=== PATIENT | female | born 1950 | race Caucasian/White ===

== ENCOUNTER 2024-09-29 16:03 | Outpatient (CLI) | payer MEDICARE, BC, SELFPAY ==
--- NOTE | 2024-09-29 14:00 | DI.RAD_ITS ---
Exam(s) XR KNEE LT 3V AP,LAT,JOSÉ EXAM: XR KNEE LT 3V AP,LAT,JOSÉ CLINICAL HISTORY: left knee pain. TECHNIQUE: 2D digital imaging was performed. Three views. COMPARISON: CR XR KNEE 3V RT from 07/10/2024 FINDINGS: BONES: No acute fracture is present. No bony destructive lesion is seen. JOINTS: The knee is normally aligned. No joint effusion is seen. Mild narrowing of the medial femor al tibial joint. Periarticular spurring noted throughout, greatest at patella. Joint space loose iraida dy noted posteriorly. SOFT TISSUE: Normal. IMPRESSION: Moderate degenerative changes. Posterior joint space loose body. DATA REPOSITORY: RADIATION DOSE DELIVERED:
== END 2024-09-29 16:04 | disposition home or self-care (01) ==
LOC: DIORS 16:04
PROVIDERS: PCP Neuromusculoskeletal Medicine & OMM; Referring Provider Neuromusculoskeletal Medicine & OMM; Visit Provider Student in an Organized Health Care Education/Training Program
DX: M17.12 Unilateral primary osteoarthritis, left knee
CPT/HCPCS: 73562; 99203

== ENCOUNTER 2024-10-30 02:51 | Outpatient (CLI) | payer MEDICARE, BC, SELFPAY ==
[2024-10-30 14:54] LABS: HCT 41.6 % (36.0-46.0); HGB 15.1 g/dL (11.2-15.7); MCH 32.1 pg (27.0-33.0); MCHC 36.3 % (32.0-36.0); MCV 89 fL (80-95); MPV 8.9 fL (8.0-11.0); Platelet Count 237 10^3/uL (130-400); RDW 11.7 % (11.7-14.6); RDW-SD 37.9 fL; WBC 5.14 10^3/uL (4.4-10.8)
[2024-10-30 15:22] LABS: BUN 15 mg/dL (7-18); CREATININE 0.8 mg/dL (0.55-1.02); Calcium 9.2 mg/dL (8.5-10.1); Chloride 102 mmol/L (98-107); Estimated GFR 76.31 (mL/min/1.73m2); Glucose 102 mg/dL (74-106); Potassium 3.6 mmol/L (3.5-5.1); Sodium 141 mmol/L (136-145)
== END 2024-10-30 02:52 | disposition home or self-care (01) ==
LOC: LBO 02:52
PROVIDERS: PCP Neuromusculoskeletal Medicine & OMM; Visit Provider Student in an Organized Health Care Education/Training Program
DX: M17.12 Unilateral primary osteoarthritis, left knee (principal); Z01.818 Encounter for other preprocedural examination
CPT/HCPCS: 36415; 80048; 85027; 99024; 73560; 77073

== ENCOUNTER 2024-10-30 15:31 | Outpatient (CLI) | payer MEDICARE, BC, SELFPAY ==
--- NOTE | 2024-10-30 13:30 | DI.RAD_ITS ---
Exam(s) XR KNEE LT 1V XR STANDING ALIGNMENT EXAM: XR STANDING ALIGNMENT and XR knee LT 1 V CLINICAL HISTORY: LEFT KNEE DJD. TECHNIQUE: 2D digital imaging was performed. Five images were obtained. COMPARISON: CR XR KNEE 3V RT from 07/10/2024 CR XR KNEE LT 3V AP,LAT,JOSÉ from 09/29/2024 FINDINGS: BONES: The hips are well maintained. There is again seen a right total knee arthroplasty which appea rs stable. There are degenerative changes seen in the left knee characterized by joint space narrowi ng and osteophytes. The findings are most marked in the lateral femoral tibial joint in the patellof emoral joint. There does appear to be a small joint effusion. There osseous densities seen in the p osterior knee which may represent loose bodies. The ankles are well maintained.There is no significa nt leg length discrepancy. SOFT TISSUE: Normal. IMPRESSION: Moderate osteoarthritis of the left knee. DATA REPOSITORY: RADIATION DOSE DELIVERED:
== END 2024-10-30 15:32 | disposition home or self-care (01) ==
LOC: DIORS 15:35
PROVIDERS: PCP Neuromusculoskeletal Medicine & OMM; Visit Provider Physician Assistant
DX: M17.12 Unilateral primary osteoarthritis, left knee (principal); Z01.818 Encounter for other preprocedural examination
CPT/HCPCS: 73560; 77073

== ENCOUNTER 2024-11-06 08:13 | Day surgery (SDC) | payer MEDICARE, BC, SELFPAY ==
[2024-11-06] VITALS (17 sets, daily range): BP systolic 103–146; BP diastolic 56–76; PULSE 71–97; RESP 12–21; TEMP 36–36.5; O2SAT 96–100; BMI 25.2
--- NOTE | 2024-11-06 07:27 | W.PM.DSUDISC ---
Date of service: 11/06/24 Discharge Plan Disposition Patient Disposition: Home Condition: Good Discharge Details Reason For Visit: L TKR Attending Provider: Leodan Sharp Primary Care Provider: Neeraj Valadez Dows Meds and New Rx's Prescriptions: New celecoxib 200 mg capsule 200 mg PO BID Qty: 60 0RF aspirin 81 mg tablet,delayed release (DR/EC) 81 mg PO BID Qty: 60 0RF acetaminophen 500 mg tablet 1,000 mg PO TID Qty: 90 3RF pantoprazole 40 mg tablet,delayed release (DR/EC) 40 mg PO DAILY Qty: 30 0RF dexamethasone 4 mg tablet 4 mg PO DAILY Qty: 2 0RF gabapentin 300 mg capsule 300 mg PO QHS Qty: 14 0RF oxycodone 5 mg tablet 5 mg PO Q4H MDD 6 tabs PRN (Reason: pain) Qty: 20 0RF Continued hydrochlorothiazide 25 mg tablet 25 mg PO DAILY Discharge Instructions Additional Instructions: Total Knee Discharge Instructions Activity: The most important activity is to walk and to work on gentle motion (both flexion and extension). You should try to take short walks a few times a day. It is important that when resting you work on keeping the knee straight. Avoid putting a pillow behind the knee as this will encourage flexion. Work on range of motion exercises as provided by Physical Therapy. - Start outpatient physical therapy within 2 weeks. - You should wear the MASHA hose on both legs for 2 weeks. You may remove these at night. You may also use any compression sock in place of the MASHA hose. - Utilize [employer] to review exercises, see videos on exercises and obtain basic information pertaining to your surgery and your recovery. Dressing: Remove the López wrap by 2 days after your surgery and put on the MASHA stocking given to you from the hospital. Keep the surgical dressing (underneath the LÓPEZ wrap) in place for at least one week. After the first week it may be removed and replaced with light gauze and tape or nothing. The wound and dressing may get wet after 3 days but avoid soaking the dressing or otherwise it will need to be changed. Many people prefer covering the dressing with cling wrap (saran wrap) to minimize it from getting soaked. If it gets wet, just pat dry. If it starts to peel off then it will need to be changed. Medications: - You should take Tylenol and anti-inflammatory Celebrex as your primary pain control medications. If the Celebrex is too expensive or not covered, please call the office for another alternative (Advil/Ibuprofen or Naproxen/Aleve) - You have been prescribed a stronger pain medication Oxycodone for breakthrough pain, take as needed as prescribed. - You have also been prescribed a stomach acid reduction agent Pantoprozole to help reduce stomach acid and reflux. - You have been prescribed Gabapentin to take at night for restlessness and nerve pain. - You will be taking Aspirin 81mg twice a day for DVT prevention unless instructed otherwise. - You have also been prescribed Decadron to take to control post-operative nausea and pain. You will start this tomorrow. - If you have constipation you should take Colace or Miralax (both [id number]). It takes most people 3-4 days to have a bowel movement. Follow-up: 2 weeks If you have any acute concerns or questions, please do not hesitate to contact the office at [phone]. You may contact Dr. Sharp with any questions after hours through the hospital at [phone] or on his cell phone at [phone]. Referrals: Leodan Sharp MD [ [facility] STAFF PHYSICIAN] - Equipment/Supplies: Walker Activity:: Activity as Tolerated Shower/Bathe:: 72 hours Diet:: As Tolerated Discharge Orders Discharge Orders: Discharge Order (Routine); Ordered 11/06/24 Ordered By: Yvan Llamas DS: Diagnosis Discharge Diagnosis (1) Left knee DJD: Status: Acute
[2024-11-06] MEDS: Acetaminophen 500 MG TAB 1000 MG PO (08:44)
[2024-11-06] MEDS: Celecoxib 200 MG CAP 400 MG PO (08:44)
[2024-11-06] MEDS: Gabapentin 300 MG CAP PO (08:44)
[2024-11-06] MEDS: Lactated Ringers 1,000 ML 80 ML IV (09:17)
--- NOTE | 2024-11-06 09:45 | W.ANESPRE ---
General Info Date of Service Date Performed: 11/06/24 Height: 5 ft 1 in Weight: 60.6 kg Body Mass Index (BMI): 25.2 Surgical Procedure: Operation Date: 11/06/24 11:10 Proposed Procedure Side Surgeon p Knee Total Arthroplasty, Cementless CR Left Leodan Sharp MD Meds Allergies and Home Medications Allergies Allergy/AdvReac Type Severity Reaction Status Date / Time No Known Allergies Allergy Verified 11/06/24 08:30 Home Medication ?Medication ?Instructions ?Recorded hydrochlorothiazide 25 mg tablet 25 mg PO DAILY 09/24/24 acetaminophen 500 mg tablet 1,000 mg (2 x 500 mg) PO TID #90 11/06/24 tabs aspirin 81 mg tablet,delayed 81 mg PO BID #60 tabs 11/06/24 release celecoxib 200 mg capsule 200 mg PO BID #60 caps 11/06/24 dexamethasone 4 mg tablet 4 mg PO DAILY #2 tabs 11/06/24 gabapentin 300 mg capsule 300 mg PO QHS #14 caps 11/06/24 oxycodone 5 mg tablet 5 mg PO Q4H PRN pain #20 tabs 11/06/24 pantoprazole 40 mg tablet,delayed 40 mg PO DAILY #30 tabs 11/06/24 release Current Visit Medications: Current Medications Generic Name Dose Route Start Last Admin Trade Name Freq PRN Reason Stop Dose Admin Acetaminophen 1,000 mg 11/06/24 06:00 11/06/24 08:44 Acetaminophen 500 Mg Tab PO 11/06/24 23:59 1,000 mg PREOP RODNEY Administration Acetaminophen 1,000 mg 11/06/24 07:23 Acetaminophen 500 Mg Tab PO 12/06/24 07:22 TID PRN PRN Analgesia Celecoxib 400 mg 11/06/24 06:00 11/06/24 08:44 Celecoxib 200 Mg Cap PO 11/06/24 23:59 400 mg PREOP RODNEY Administration Gabapentin 300 mg 11/06/24 06:00 11/06/24 08:44 Gabapentin 300 Mg Cap PO 11/06/24 23:59 300 mg PREOP RODNEY Administration Ringer's Solution 1,000 mls @ 80 mls/hr 11/06/24 06:00 11/06/24 09:17 IV 11/06/24 23:59 80 mls/hr INFUSION RODNEY Administration Cefazolin Sodium/Dextrose 2 gm in 50 mls @ 100 mls/hr 12/26/24 06:00 Ancef Duplex IVPB 11/06/24 23:59 PREOP RODNEY Tranexamic Acid/Sodium Chloride 1,000 mg in 100 mls @ 600 mls/hr 11/06/24 06:00 IVPB 11/06/24 23:59 PREOP RODNEY IV Miscellaneous Supplies 1 each 11/06/24 06:00 Iv Access IV 11/06/24 23:59 DIRECTED RODNEY Oxycodone HCl 0 mg 11/06/24 07:23 Oxycodone 5 Mg Tab PO 12/06/24 07:22 Q3H PRN PRN Pain Sodium Chloride 0 ml 11/06/24 06:00 Normal Saline Flush 10 Ml Syr IV 11/06/24 23:59 PRN PRN Sodium Chloride 0 ml 11/06/24 06:00 Normal Saline 10 Ml Vial IJ 11/06/24 23:59 DIRECTED PRN Sterile Water 0 ml 11/06/24 06:00 Water,Injection,Sterile 10 Ml Vial IJ 11/06/24 23:59 DIRECTED PRN PFSH Active Problems Active Problems: Problem Status Onset Code Left knee DJD Acute M17.12 Hypertensive disorder Chronic I10 Hyperlipidemia Acute E78.5 Surgical History Surgical History Hx of hysterectomy History of total right knee replacement (2018) Tobacco Smoking/Tobacco Use Status: Never Alcohol Alcohol Intake: current Alcohol intake frequency: a few times a week Alcohol type: wine Substance Use Substance use: Never Substance use type: does not use Vital Signs and Lab Results Vital Signs Most Recent Vital Signs in EMR: Most Recent Vital Signs Temp Pulse Resp BP Pulse Ox 36.0 C L 71 18 146/76 H 98 11/06/24 08:32 11/06/24 08:32 11/06/24 08:32 11/06/24 08:32 11/06/24 08:32 Lab Results Blood Type / Crossmatch: No Data to Display Complete Blood Count: White Blood Count 5.14 10^3/uL (4.4-10.8) 10/30/24 14:44 Red Blood Count 4.70 10^6/uL (3.93-5.22) 10/30/24 14:44 Hemoglobin 15.1 g/dL (11.2-15.7) 10/30/24 14:44 Hematocrit 41.6 % (36.0-46.0) 10/30/24 14:44 Platelet Count 237 10^3/uL (130-400) 10/30/24 14:44 Complete Metabolic Panel: Sodium 141 mmol/L (136-145) 10/30/24 14:44 Potassium 3.6 mmol/L (3.5-5.1) 10/30/24 14:44 Chloride 102 mmol/L (98-107) 10/30/24 14:44 Carbon Dioxide 30.0 mmol/L (21.0-32.0) 10/30/24 14:44 BUN 15 mg/dL (7-18) 10/30/24 14:44 Creatinine 0.8 mg/dL (0.55-1.02) 10/30/24 14:44 Est GFR (CKD-EPI 2020) 76.31 (mL/min/1.73m2) 10/30/24 14:44 Calcium 9.2 mg/dL (8.5-10.1) 10/30/24 14:44 Glucose 102 mg/dL (74-106) 10/30/24 14:44 Liver Function Panel: No Data to Display Coagulation Panel: No Data to Display Cardiac Panel: No Data to Display Arterial Blood Gas: No Data to Display Venous Blood Gas: No Data to Display Pancreas Panel: No Data to Display Thyroid Panel: No Data to Display Infectious Disease: No Data to Display Blood Cultures: No Data to Display Toxicology Panel: No Data to Display Anesthesia Assessment and Plan Anesthesia History Personal History: No History of Anesthesia Complications Family History: No Family History of Anesthesia Complications Exercise Tolerance Exercise Tolerance: Metabolic Equivalents>4 Pertinent Negatives Pertinent Negatives: No Symptoms of GERD Cardiac & Pulmonary Exam Cardiac Exam: Normal S1/S2 Heart Sounds Pulmonary Exam: Clear Bilateral Breath Sounds Implantable Cardiac Device Does patient have a Pacemaker or an ICD?: No Airway Exam Known Difficult Airway: No Mallampati Class: 2 Mouth Opening: Narrow (< 3cm) Thyromental Distance: Greater than 3 cm Neck Range of Motion: Full ROM Neck Circumference: Normal Teeth Condition: Normal Dentition ASA Classification ASA Score: ASA 2 Emergency Case?: No NPO Status NPO Status: NPO Clears >2 hours, Solids >8 hours Anesthesia Plan Resuscitation Status: Full Code Anesthesia Technique: General Anesthesia Airway Planned: Endotracheal Tube Pain Management: Surgeon and patient request nerve block Monitors Used: Standard Monitors Preoperative Comments:: Patient does not want a spinal today. Does not feel like theyve worked for her in the past
--- NOTE | 2024-11-06 10:04 | W.ANESNERVE ---
Nerve Block Single Injection Procedure Date and Time Date Performed: 11/06/24 Procedure Start: 09:55 Location Where Procedure Performed Procedure Location: Day Surgery Unit Reason Performed: Postoperative Analgesia Requesting Provider: Leodan Sharp Timeout Performed Timeout Performed: Yes Monitoring Used ECG, Blood Pressure and SpO2 Sterility Sterility: Hand Hygiene, Surgical Cap, Surgical Mask, Sterile Gloves and Chlorhexidine Sedation Given During Procedure Sedation Given (Indicate Dose Given): Precedex IV Dose:: 8 mcg Patient Mental Status Patient Mental Status: Sedate with meaningful communication Nerve Block 1st Nerve Block: Laterality: Left Block Type: Adductor Canal Ultrasound Image Saved?: Yes Needle / Catheter Used: 100mm SonoPlex II Local Anesthetic Bolus (Indicate Dose Given): Lidocaine used for local infiltration of skin, Injected in 3-5ml increments after negative blood aspiration and Bupivacaine 0.25% Dose:: 15 ml Additives (Indicate Dose Given): Normal Saline Ultrasound: Sterile probe cover and gel used Nerve Stimulator: Supplement to Ultrasound use and No twitch or parasthesia noted < 0.5 mA Paresthesia: None Procedure Tolerated: No Complications and Patient tolerated well Procedure Outcome: Successful Performed By: Kee Hughes
[2024-11-06] MEDS: ceFAZolin 2 GM/50 ML BAG IVPB (11:03)
[2024-11-06] MEDS: TRANEXAMIC ACID/SOD. CHL. 1,000 MG/100 ML BAG 600 MG IVPB (11:12)
--- NOTE | 2024-11-06 12:29 | ROE_ITS ---
Operative Note Operative Note PRE-OP DIAGNOSIS: Left Knee Osteoarthritis POST-OP DIAGNOSIS: same PROCEDURE: Left Total Knee Replacement SURGEON: Leodan Sharp [employer] PROFESSOR: Priyanka Llamas ANESTHESIA TYPE: General LMA/ETT Refer to Anesthesia Record ESTIMATED BLOOD LOSS: 150 PATHOLOGY: none sent TOURNIQUET TIME: 0 COMPLICATIONS: None Patient was transported to: PACU Patient's condition: stable Implants: 1. Depuy Attune Cementless Cruciate Retaining Femoral Component, Size 4 2. Depuy Attune Cementless Fixed Bearing Tibial Component, Size 3 3. Depuy Attune 4x6mm CR/FB Poly 4. Depuy Attune Patellar Component, Size 35 Indications: I have seen Lora in clinic for symptoms of knee arthritis, confirmed with radiographic findings. She has exhausted nonoperative methods and was having significant limitations in daily function and desired better function and less pain. I discussed the technical details of a knee replacement. I explained the risks of the procedure to include, but not limited to, bleeding, infection, pain, stiffness, fracture, damage to nerves and vessels, damage to muscles and tendons, loosening, need for repeat procedure, blood clot and cardiopulmonary demise. Despite these risks, Lora elected to proceed. Findings: There was significant signs of arthritis throughout the knee, most affecting the medial femur and tibia and trochlea. Procedure Description: Tobias was greeted in the preoperative holding area where the correct side was identified and marked. The consent was reviewed with the patient and signed. The history and physical was updated. All questions were answered. Preoperative medications were administered: Acetaminophen 1000mg, Celebrex 400mg, and Gabapentin 300mg. An adductor canal block was then administered by the anesthesia team in the DSU. She was taken back to the operating room. A general anesthestic was then administered. The patient was placed into the supine position on the operating room table. Posts were placed for positioning during the procedure. All bony prominences were well padded. Prophylactic antibiotics in the form of Cefazolin were administered. 1g of Tranxemic Acid was given intravenously within 30 minutes of incision. The left leg was then prepped with Chloraprep and draped in a standard fashion with impervious stockinette. A second prep with Chloraprep was performed prior to application of Iodine impregnated skin protection. A timeout to confirm correct identity, side and site, procedure, allergies, anesthesia, and medical concerns was performed. With the knee in some flexion, a midline incision was made overlying the knee. Full thickness skin flaps were raised once the extensor mechanism was encountered. These were raised medially and laterally. Any bleeding was controlled with electrocautery. Once the extensor mechanism was fully exposed, a medial parapatellar arthrotomy was performed in a flexed position. All bleeding from the arthrotomy and the geniculate arteries was coagulated. A medial subperiosteal peel was performed with electrocautery to the midcoronal plane. The fat pad was removed while keeping the patellar tendon protected. The anterior distal femur synovium was removed for later visualization. The ACL and PCL were resected and the anterior horn of the lateral meniscus was transected. The knee was then flexed with the patella everted. Large osteophytes from the tibia were removed. Large osteophytes from the femur were removed. Using a step drill, and based on preoperative templating, the femoral canal was entered. This was done with a step drill without any difficulty. The intramedullary distal femoral cut guide was inserted, set to a 5 degree valgus cut and 9mm cut thickness. The distal femoral cut guide was then held in position and pinned. With the soft tissues protected, the distal cut was performed. This was passed over a few times to ensure a planar cut. I then turned attention to the tibia. The extramedullary guide was placed onto the leg. The distal aspect was slid medial to adjust for position of center of ankle and stay in line with shaft of the tibia. Approximately 3-5 degrees of posterior slope was kept in the proximal cutting guide. The center of the guide was aligned with the PCL. The stylus was used to assess cut thickness. The medial side, most involved side, was set for a 6mm cut. This was then held in position and pinned into place with 2 additional pins and a cross pin for stability. The medial and lateral collateral ligaments were protected and the cut was performed. With this completed, it was assessed and noted to be of appropriate dimensions. The guide was removed. A spacer block was inserted and the knee was brought into extension. The 6mm spacer block provided full extension, without hyperextension and with stability of both the medial and lateral collateral ligaments was assessed. The pins from the femur and the tibia were then removed. The distal femur was then sized. The anterior stylus was placed onto the lateral ridge of the anterior femur. This indicated a size 4 femur. The external rotation of the guide was adjusted to 0 degrees to match the epicondylar axis, perpendicular to [place]?s line. The 4-in-1 cutting guide was the placed. The posterior medial femur cut was evaluated and appeared of good thickness. The spacer block was inserted underneath the cutting guide and stability was confirmed in 90 degrees of flexion. An marshall wing was used to confirm appropriate position of the anterior cut to avoid notching. This cutting guide was ensured to be flush on the cut surface and then pinned into place with headed pins. While protecting the soft tissues, quad tendon, and collateral ligaments, the anterior and posterior cuts were performed with a saw. The central two pins were removed and the posterior and anterior chamfers were cut next. The notch-cutting guide was placed. This was pinned to lateralize the femoral component as much as possible while keeping it flush on the cut surface. This was then pinned into position. A reciprocating saw was used to make the notch cut. A rasp smoothed the cut surfaces. The medial and lateral menisci were removed. A trial femoral component was then inserted, impacted down to the cut surfaces, and the lug holes were drilled. A provisional trial tibial component was placed and the knee was brought through range of motion. There was noted to be excellent extension and flexion. There was no significant instability. The patella was tracking without thumbs. A size 6mm polyethylene component provided the best range of motion and stability with less than 2mm gapping with medial and lateral stress and full extension without significant hyperextension. The tibial cut surface was fully exposed. The tibia was then sized as a 3. The tibia had been previously marked during trialing to correspond to the center of the tibial component to help with rotation. The trial was aligned to this priyanka, approximately rotated to the medial 1/3rd of the tibial tubercle. The trial was pinned into place. The tibia was prepared with a reamer and a keel punch and lug holes. The knee was then brought into extension and the patella was measured as 23mm. Using the patellar clamp and cut guide, this was resected to a flat surface with at least 13mm of thickness remaining. The size 35 patella fit the best. This was oriented and then clamped into position. The lugs were drilled. The trial components were removed. The final components were opened on the back table. The periosteal and capsular tissues, especially posteriorly, around the knee were then systematically injected with a periarticular cocktail consisting of 246mg of Ropivacaine, 0.5mg of Epinephrine, 0.08mg of Clonidine, and 30mg of Ketorolac, diluted to 100cc. On the back table, with the implants opened, the cement was mixed. One batch of high viscosity cement was prepared with vacuum assistance. After the cement was ready a small amount was placed on the cut surface of the patella and the patellar button was clamped into position and held. While the cement was hardening, the cementless knee components were placed. Starting with the tibial component, the tibia was subluxed anteriorly and the lug holes of the component were lined up. The tibia was then impacted with an impactor and mallet until the tibial component was in contact with the tibia. The final polyethylene component was inserted. Then, the femoral component was inserted. The lug holes were aligned and the component was impacted into position. The knee was irrigated with Surgiphor Betadine solution. This was allowed to sit in the knee for 3 minutes and then it was irrigated out with saline. After the cement had finally cured, approximately 15min, the clamp was removed from the patella and the knee was taken through range of motion. The patella was tracking with a no-thumbs technique. The capsule was then reapproximated with a No. 1 Vicryl at multiple locations. The capsule was finally closed with a No. 2 Stratafix, barbed suture. The second dosing of 1g TXA was started. Deep tissues were then reapproximated with 0 Vicryl and 2-0 Vicryl. The skin was closed with a running 3-0 Monocryl in a subcuticular fashion. This was reinforced with skin glue. A Mepilex silver dressing was applied along with a [id number]-[id number] HARRIETT wrap. A CryoCuff was applied. Lora was transferred to the hospital bed without difficulty an suffering no apparent complication. She has a good prognosis. Physical therapy will start today and without restrictions, weight-bearing as tolerated. Aspirin 81mg BID will be used for DVT prophylaxis. Date of Procedure: 11/06/24
[2024-11-06] MEDS: oxyCODONE 5 MG TAB PO (13:24)
--- NOTE | 2024-11-06 14:36 | W.ANESPOSTOP ---
Postoperative Evaluation Date, Time and Location Date Performed: 11/06/24 Time Performed: 13:48 Patient Location: Day Surgery Unit Vital Signs Most Recent Imported Vital Signs: Most Recent Vital Signs Temp Pulse Resp BP Pulse Ox 36 C L 72 13 123/59 L 99 11/06/24 13:25 11/06/24 13:25 11/06/24 13:25 11/06/24 13:25 11/06/24 13:25 Pain Score Most Recent Pain Score: Most Recent Pain Score Pain Level 3 11/06/24 13:25 Assessment Mental Status: Awake (Alert & Oriented to Patient Baseline) Airway and Respiratory Function: Patent airway with normal (patient baseline) respiratory exam Cardiovascular Function: Hemodynamically Stable Hydration Status: Adequately Hydrated Nausea & Vomiting: No Nausea or Vomiting Pain: Pain is tolerable per patient Peripheral Nerve Block: Regional nerve block not resolved at time of post operative discharge
--- NOTE | 2024-11-06 15:15 | PT.INIE ---
PT Notes Visit Reasons: L TKR Physical Therapy Day Surgery Initial Evaluation Date: 11/06/2024 Referring Doctor: Yvan Llamas/Dr. Sharp PT Orders: PT CONSULT: Status post Ortho surgery Precautions: Activity as tolerated,TEDS x 2 weeks Patient Profile/Admitting Diagnosis: Patient is a 74-year-old female presenting status post elective left TKA by Dr. Sharp under spinal anesthesia on 11/06/2024. Postop uncomplicated PMHX: History of right TKA, DJD, hypertensive disorder, hyperlipidemia Social History/Home Situation: Patient resides with in two-story home with 2 steps without a rail to enter. Primary bedroom and bath are on the second floor however patient will be staying on first floor. She has comfort height toilet in both bathrooms. She has a tub with grab bars in the downstairs bathroom and walk-in stall primary bathroom on second floor. Patient drives. Patient is independent with ambulation, ADLs, IADLs, meal prep, shopping, homemaking, med management. is available to help as needed Equipment Owned/DME: FWW, Cryo/Cuff from prior surgery Subjective: Patient reports she is feeling well and eager to move Objective: General Observation: Alert female semireclined on stretcher with Cryo/Cuff to left knee and has been visiting Mental Status: Alert and oriented x 4 Pain: 2/10 left knee ROM: Right Upper Extremity: WNL Left Upper Extremity: WNL Right Lower Extremity: WNL Left Lower Extremity: WNL except knee 0-94 degrees Strength: BUE: 5/5 Right Lower Extremity: Grossly 5/5 Left Lower Extremity: Patient able to demonstrate strong quad set and straight leg raise without lag in shortened range. Patient demonstrates active heel slide in supine to 80 degrees. Sensation: Intact Bed Mobility/Transfers: Supine to sit independent Sit to stand independent Stand to sit independent Bed to chair SBA with FWW Gait: Patient ambulated on level surfaces including turns with FWW 200 feet with reciprocal pattern noted decreased left knee flexion during swing phase, early heel off. Stairs: 2 steps step to pattern with simulated use of holding door frame with contact-guard assist. Has been able to provide contact-guard assist Balance: Static Sitting: Normal Dynamic Sitting: Good Static Standing: Good Dynamic Standing: Fair+ Special Tests: Mobility Limitations Standardized Measure [employer] AM-PAC 6 clicks Basic Mobility Inpatient Short Form: Raw Score: 22 CMS Score: 20.91% Informed Consent/Education: Patient instructed in purpose of PT consult. Packet containing TKA exercise protocol has been given to patient. Treatment Therapeutic exercise 50555 Education and training on initial set of exercises that can be done at home have been completed with patient. Supine heel slides quad sets straight leg raise ankle pumps Seated LAQ, heel slide Assessment: Patient is a 74-year-old female presents with clinical signs and symptoms consistent with current/admitting diagnoses that have resulted to mobility limitations, gait instability, generalized weakness, and impairment of motor control as demonstrated by the following impairment level findings: 1. Decreased strength to left knee major muscle groups 2. Impaired standing balance 3. Limitation of joint range of motion in left knee 4. Impaired standing functional activity tolerance Impairments are contributing to the following functional limitations: 1. Inability to safely ambulate without assistive device 2. Increase completion time for mobility ADL performance 3. Increased fall risk 4. Decline in ability to safely perform stairs without assistance Patient is assessed as a moderate complexity based on the following: History: 74-year-old female with impairment level findings, functional limitations, and past medical history as indicated above Examination: Demonstrable impairment in strength, balance, and mobility level with underlying impairments and functional limitations as documented above Presentation: Stable Decision Making: Moderate Goals: N/A. Plan of Care/Treatment Plan: N/A. DISCHARGE RECOMMENDATIONS: Home with home exercise program and outpatient PT as scheduled TREATMENT CODE/TIME: 98198, [id number] Thank you for the opportunity to participate in the care of this patient. Rosa Hendrickson, PT [facility]
== END 2024-11-06 14:22 | disposition home or self-care (01) ==
LOC: SUR 08:13
PROVIDERS: PCP Neuromusculoskeletal Medicine & OMM; Visit Provider Student in an Organized Health Care Education/Training Program
PROC: (CPT 27447; principal; 2024-11-06 11:00)
DX: M17.12 Unilateral primary osteoarthritis, left knee (principal); G89.18 Other acute postprocedural pain; M25.562 Pain in left knee; E78.5 Hyperlipidemia, unspecified; I10 Essential (primary) hypertension
CPT/HCPCS: 27447; 64447; 97110; 97162; C1776; J0665; J0690; J1100; J2371; J2401; J2405; J2704; J3010

== ENCOUNTER 2024-11-17 15:49 | Outpatient (CLI) | payer MEDICARE, BC, SELFPAY ==
--- NOTE | 2024-11-17 15:11 | DI.RAD_ITS ---
Exam(s) XR STANDING ALIGNMENT EXAM: XR STANDING ALIGNMENT CLINICAL HISTORY: POST OP LEFT TKA. TECHNIQUE: 2D digital imaging was performed. COMPARISON: CR XR STANDING ALIGNMENT from 10/30/2024 FINDINGS: 3 views There are now bilateral knee prostheses, with pre-existing right knee prosthesis and more recently pl aced left knee prosthesis, both of which appear unremarkable on these images. Both hips appear unremarkable as do the sacroiliac joints. Ankles appear unremarkable. Bone density is normal. No osseous lesions. IMPRESSION: Bilateral knee prostheses as described above; both appears satisfactory. DATA REPOSITORY: RADIATION DOSE DELIVERED:
--- NOTE | 2024-11-17 15:12 | DI.RAD_ITS ---
Exam(s) XR KNEE LT 1V EXAM: XR KNEE LT 1V CLINICAL HISTORY: POST OP LEFT TKA. TECHNIQUE: 2D digital imaging was performed. COMPARISON: CR XR KNEE LT 1V from 10/30/2024 FINDINGS: Single lateral view There has been interval placement of a left knee prosthesis. Femoral and tibial components appears s atisfactory no fracture or loosening. There has been patellar resurfacing. IMPRESSION: Satisfactory appearance of recently placed prosthesis components in the left knee. DATA REPOSITORY: RADIATION DOSE DELIVERED:
== END 2024-11-17 15:50 | disposition home or self-care (01) ==
LOC: DIORS 15:49
PROVIDERS: PCP Neuromusculoskeletal Medicine & OMM; Referring Provider Neuromusculoskeletal Medicine & OMM; Visit Provider Student in an Organized Health Care Education/Training Program
DX: Z96.652 Presence of left artificial knee joint (principal); Z47.1 Aftercare following joint replacement surgery
CPT/HCPCS: 99024; 73560; 77073

== ENCOUNTER → 2024-12-15 14:50 | Outpatient (BNVA) | payer MEDICARE, BC, SELFPAY | PROVIDERS: PCP Neuromusculoskeletal Medicine & OMM; Referring Provider Neuromusculoskeletal Medicine & OMM; Visit Provider Student in an Organized Health Care Education/Training Program | DX: Z47.1 Aftercare following joint replacement surgery (principal); Z96.652 Presence of left artificial knee joint | CPT/HCPCS: 99024 ==

== ENCOUNTER → 2025-01-19 09:53 | Outpatient (BNVA) | payer MEDICARE, BC, SELFPAY | PROVIDERS: PCP Neuromusculoskeletal Medicine & OMM; Referring Provider Neuromusculoskeletal Medicine & OMM | DX: Z47.1 Aftercare following joint replacement surgery (principal); Z96.652 Presence of left artificial knee joint | CPT/HCPCS: 99024 ==